=== PATIENT | female | born 1960 | race Caucasian/White ===

== ENCOUNTER 2018-06-07 11:31 | Emergency (ER) | payer SELFPAY ==
[2018-06-07 11:50] VITALS: BP 131/90; TEMP 98.5; O2SAT 97
--- NOTE | 2018-06-07 12:35 | ED.PDOC ---
History of Present Illness - General Chief Complaint: General Stated Complaint: vibrations Time Seen by Provider: 06/07/18 12:19 Source: patient Exam Limitations: no limitations - History of Present Illness Initial Comments: c/o internal vibrations. She says she has had them for decades & particularly in [place] but that they have grown worse over the past several weeks. She attributes the worsening to a machine that her neighbor has. She can't describe it or tell me what it is for but that when he runs it things get worse. She thinks he is doing it intentionally to "get me off my land". She says her has none of these sensations. Timing/Duration: getting worse Severity: moderate Improving Factors: other - turning the machine off Associated Symptoms: denies symptoms Allergies/Adverse Reactions: Allergies Penicillins Allergy (Verified 06/07/18 11:50) Home Medications: Ambulatory Orders NK 06/07/18 Review of Systems - Review of Systems Constitutional: States: no symptoms reported EENTM: States: other - "allergies" Respiratory: States: no symptoms reported Cardiology: States: no symptoms reported Gastrointestinal/Abdominal: States: no symptoms reported Genitourinary: States: no symptoms reported Musculoskeletal: States: no symptoms reported Skin: States: no symptoms reported Neurological: States: see HPI Endocrine: States: no symptoms reported Hematologic/Lymphatic: States: no symptoms reported Past Medical History (General) - Patient Medical History Hx Stroke: No Hx Congestive Heart Failure: No Hx Diabetes: No Surgical History: Hysterectomy - Vaccination History Hx Influenza Vaccination: No - Social History Hx Tobacco Use: Yes Family Medical History - Family History Mother Family History: Unknown Living Status: Unknown Physical Exam - Physical Exam General Appearance: Alert, Comfortable, No apparent distress Eye Exam: bilateral normal Ears, Nose, Throat: normal ENT inspection Neck: full range of motion, supple, normal inspection Respiratory: lungs clear, normal breath sounds, no respiratory distress Cardiovascular/Chest: regular rate, rhythm, no edema Gastrointestinal/Abdominal: non tender, soft Extremity: normal range of motion, normal inspection 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 She doesn't have a doctor so will send her to the [facility] & [facility]. Departure - Departure Clinical Impression: General symptom, Paranoia, Delusions Time of Disposition: 12:38 Disposition: Discharge to Home or Self Care Condition: Good Departure Forms: ED Discharge - Pt. Copy, Patient Portal Self Enrollment Instructions: Paresthesias (DC) Home Medications: Ambulatory Orders NK 06/07/18 Additional Instructions: Follow up in the primary care clinic & [facility] this week with the numbers we gave you.
== END 2018-06-07 12:52 | disposition home or self-care (01) ==
LOC: ER 11:31
DX: R68.89 Other general symptoms and signs (principal); F22 Delusional disorders; Z87.891 Personal history of nicotine dependence